=== PATIENT | female | born 1980 | race Caucasian/White ===

== ENCOUNTER → 2020-08-08 | Outpatient (CLI) | payer OTHER, SELFPAY ==
[2020-08-08 15:05] VITALS: BMI 21.8
== END | disposition home or self-care (01) ==
LOC: LABSPEC 16:54
PROVIDERS: Visit Provider Obstetrics & Gynecology
DX: N89.8 Other specified noninflammatory disorders of vagina (principal)
CPT/HCPCS: 87070; 87205

== ENCOUNTER → 2021-06-21 15:53 | Outpatient (CLI) | payer OTHER, SELFPAY ==
[2021-06-27 08:29] LABS: HPV APTIMA, High Risk Negative (Negative)
== END ==
PROVIDERS: Referring Provider Physician Assistant; Visit Provider Physician Assistant
DX: Z12.4 Encounter for screening for malignant neoplasm of cervix (principal)
CPT/HCPCS: 87624; 88175; G0145

== ENCOUNTER → 2021-08-08 16:15 | Outpatient (CLI) | payer OTHER, SELFPAY ==
--- NOTE | 2021-08-08 16:17 | BI_ITS ---
MAMMOGRAPHY - BILATERAL SCREENING REASON FOR EXAM: Female, 40 years old. Routine annual screening examination. PERTINENT HISTORY: Non-contributory. TECHNIQUE: Digital bilateral breast kelly (3D mammographic acquisition) in the CC and MLO projections. 2-D mediolateral oblique (MLO) and craniocaudad (CC) views of both breasts were obtained. CAD: Full Field Digital Mammography with Computer Added Detection was performed. COMPARISON: None. Baseline examination. FINDINGS: Breast Composition: The breasts are extremely dense, which lowers the sensitivity of mammography. There are no dominant masses or suspicious calcifications. No other significant abnormalities are identified. BI/SCRN MAMM (CAD)W/KELLY BILAT IMPRESSION: Negative screening mammogram. Yearly followup mammogram recommended. (A) ASSESSMENT CATEGORY: BIRADS Category 1: Negative. A letter regarding these results will be sent to the patient by the facility within 30 days. Approximately 10% of breast cancers are not detected by mammography. A normal mammogram should not delay biopsy of a clinically suspicious abnormality. [id number] Electronically Signed: Tae Roman MD at 9:38 EST , Service support ,
== END ==
PROVIDERS: PCP Family Medicine; Referring Provider Physician Assistant; Visit Provider Physician Assistant
DX: Z12.31 Encounter for screening mammogram for malignant neoplasm of breast (principal)
CPT/HCPCS: 77063; 77067

== ENCOUNTER → 2022-06-28 | Outpatient (CLI) | payer OTHER, SELFPAY | END | disposition home or self-care (01) | PROVIDERS: PCP Family Medicine; Visit Provider Obstetrics & Gynecology | DX: N89.8 Other specified noninflammatory disorders of vagina (principal) | CPT/HCPCS: 87070; 87077; 87186; 87205 ==

== ENCOUNTER → 2022-09-10 | Outpatient (CLI) | payer OTHER, SELFPAY ==
--- NOTE | 2022-09-10 15:04 | BI_ITS ---
MAMMOGRAPHY - BILATERAL SCREENING REASON FOR EXAM: Female, 41 years old. Routine annual screening examination. PERTINENT HISTORY: Non-contributory. TECHNIQUE: Digital bilateral breast kelly (3D mammographic acquisition) in the CC and MLO projections. 2-D mediolateral oblique (MLO) and craniocaudad (CC) views of both breasts were obtained. CAD: Full Field Digital Mammography with Computer Added Detection was performed. COMPARISON: Comparison is made with prior study dated 08/08/2021. FINDINGS: Breast Composition: The breasts are extremely dense, which lowers the sensitivity of mammography. There are no dominant masses or suspicious calcifications. No other significant abnormalities are identified. There has been no significant change since the prior study. BI/SCRN MAMM (CAD)W/KELLY BILAT IMPRESSION: Stable bilateral screening mammogram. Yearly follow-up mammogram recommended. (A) ASSESSMENT CATEGORY: BIRADS Category 1: Negative. A letter regarding these results will be sent to the patient by the facility within 30 days. Approximately 10% of breast cancers are not detected by mammography. A normal mammogram should not delay biopsy of a clinically suspicious abnormality. [id number] Electronically Signed: Tae Roman MD at 15:45 EST ,
== END | disposition home or self-care (01) ==
LOC: OPBI 15:03
PROVIDERS: PCP Family Medicine; Visit Provider Obstetrics & Gynecology
DX: Z12.31 Encounter for screening mammogram for malignant neoplasm of breast (principal)
CPT/HCPCS: 77063; 77067

== ENCOUNTER → 2023-09-24 | Outpatient (CLI) | payer OTHER, SELFPAY ==
--- NOTE | 2023-09-24 13:58 | BI_ITS ---
MAMMOGRAPHY - BILATERAL SCREENING REASON FOR EXAM: Female, 42 years old. Routine annual screening examination. PERTINENT HISTORY: Non-contributory. TECHNIQUE: Digital bilateral breast kelly (3D mammographic acquisition) in the CC and MLO projections. 2-D mediolateral oblique (MLO) and craniocaudad (CC) views of both breasts were obtained. CAD: Full Field Digital Mammography with Computer Added Detection was performed. COMPARISON: Comparison is made with prior study dated March 10, 2023 and August 08, 2021. FINDINGS: Breast Composition: The breasts are extremely dense, which lowers the sensitivity of mammography. There are no dominant masses or suspicious calcifications. No other significant abnormalities are identified. There has been no significant change since the prior study. BI/SCRN MAMM (CAD)W/KELLY BILAT IMPRESSION: Stable bilateral screening mammogram. Yearly follow-up mammogram recommended. (A) ASSESSMENT CATEGORY: BIRADS Category 1: Negative. A letter regarding these results will be sent to the patient by the facility within 30 days. Approximately 10% of breast cancers are not detected by mammography. A normal mammogram should not delay biopsy of a clinically suspicious abnormality. [id number] Electronically Signed: Tae Roman MD at 13:12 EST ,
--- OUTSIDE RECORDS SUMMARY | 2023-09-24 14:24 | XMS RPT_ITS | CCD ---
Author Name Unknown Address [id number] [place] [address] Organization [facility] Care Team Providers Care Cleaning Matron Name Role Phone Katelin Means MD Unavailable [phone] Vera SENIOR INFORMATION SECURITY CONSULTANT, Darlene Borges Unavailable DARIN Scott RN, Renae De La Torre Unavailable UnavailShakira Prather Unavailable Unavailable BRENDA ESTES M.D. Unavailable UnavailBRENDA Mckeon M.D. Unavailable UnavailKatelin Ulloa MD Unavailable [phone] HR, STAFF PHYSICIAN Attending Unavailable HR, STAFF PHYSICIAN Primary Care Unavailable HR, STAFF PHYSICIAN Admitting Unavailable NGOZI RODRIGUEZ Admitting Unavailab NGOZI Mullins Attending Unavailab NGOZI Mullins Primary Care Unavailab Clau Ramirez Primary Care Provider Pcp ROAD MANAGER, No Primary Care Provider Unavailbarrie e Pcp ROAD MANAGER, No Primary Care Provider Unavailbarrie e Medications Completed/Discontinued Medications Medication Drug Class(es) Dates Sig (Normalized) Sig (Original) fluconazole 150 mg oral tablet (4 sources) Azole Antifungal Start: 07-22-2017 FLUCONAZOLE 150 MG TABS 1 po today and repeat 3 days FLUCONAZOLE [id number] Darlene Gamez SENIOR INFORMATION SECURITY CONSULTANT Problems Active Problems Problem Classification Problem Date Documented Date Episodic/Chronic Genitourinary symptoms and ill-defined conditions (2 sources) Female stress incontinence; Translations: [Stress incontinence (female) (male)] Onset: 01-11-2016 01-11-2016 Chronic Unclassified (5 sources) Screening for malignant neoplasm of cervix ; Translations: [Encounter for screening for malignant neoplasm of cervix] Onset: 07-18-2017 07-18-2017 Unclassified (5 sources) Gynecologic examination ; Translations: [Encounter for gynecological examination (general) (routine) without abnormal findings] Onset: 07-18-2017 07-18-2017 Unclassified (1 source) Unknown / UNK(Unknown) Onset: 08-18-2013 Past or Other Problems Problem Classification Problem Date Documented Date Episodic/Chronic Abdominal pain (1 source) Abdominal pain Onset: 08-18-2013 Episodic Inflammatory diseases of female pelvic organs (9 sources) Vaginitis; Translations: [Acute vaginitis] Onset: 04-26-2017 04-26-2017 Episodic Other female genital disorders (5 sources) Vaginal odor; Translations: [Other specified noninflammatory disorders of vagina] Onset: 07-18-2017 07-18-2017 Episodic Results Test Name Value Interpretation Reference Range Facil ity Vital Signs Date Time Vital Sign Value Performing Clinician Trishi litmissy 07-18-2017 15:36-0500 BMI (Body Mass Index) 21.3 kg/m2 Darlene Gamez [facility] [place] 07-18-2017 15:36-0500 BP Diastolic 77 mm[Hg] Darlene Gamez [facility] [place] 07-18-2017 15:36-0500 BP Systolic 117 mm[Hg] Darlene Gamez [facility] [place] 07-18-2017 15:36-0500 Height 167.64 cm Darlene Gamez [facility] [place] 07-18-2017 15:36-0500 Weight 59.87 kg Darlene Gamez [facility] [place] 07-18-2017 15:36-0500 Weight 59.88 kg Darlene Vera [facility] [place] 04-26-2017 13:33-0400 BMI (Body Mass Index) 21.53 kg/m2 Katelin Means MD [facility] [place] 04-26-2017 13:33-0400 Body Temperature 98 [degF] Katelin Means MD [facility] [place] 04-26-2017 13:33-0400 Body Temperature 98.01 [degF] Katelin Means MD [facility] [place] 04-26-2017 13:33-0400 BP Diastolic 64 mm[Hg] Katelin Means MD [facility] 04-26-2017 13:33-0400 BP Systolic 98 mm[Hg] Katelin Means MD [facility] 04-26-2017 13:33-0400 Height 167.64 cm Katelin Means MD [facility] 04-26-2017 13:33-0400 Pulse (Heart Rate) 67 /min Katelin Means MD [facility] 04-26-2017 13:33-0400 Respiratory Rate 16 /min Katelin Means MD [facility] 04-26-2017 13:33-0400 Weight 60.51 kg Katelin Means MD [facility] Encounters Encounter Date Encounter Type Care Provider Facility Start: 02-12-2022 ambulatory STAFF PHYSICIAN [facility] Start: 12-07-2021 End: 12-07-2021 ambulatory NGOZI RODRIGUEZ [facility] Start: 08-20-2013 End: 08-20-2013 Evaluation and management of inpatient BRENDA ESTES Facility:[facility] Start: 08-18-2013 Emergency department patient visit BRENDA ESTES [facility] Start: 07-22-2007 Documentation procedure Fernando Pulido MD Work Phone: [facility] Start: 07-22-2007 Historic EMR She Pulido MD Work Phone: [facility] Start: 07-17-2006 Documentation procedure Fernando Pulido MD Work Phone: [facility] Start: 07-17-2006 Historic EMR She Pulido MD Work Phone: [facility] Procedures Date Procedure Procedure Detail Performing Clinician Start: 07-18-2017 End: 07-29-2017 Bacteria identified in Genital specimen by Aerobe culture Darlene Gamez NP Work Phone: Start: 07-21-2007 CYTOLOGY UNDERWRITING ACCOUNT REPRESENTATIVETRISHA MD Work Phone: Start: 07-16-2006 CYTOLOGY UNDERWRITING ACCOUNT REPRESENTATIVETRISHA MD Work Phone: Plan of Treatment Date Care Activity Detail Author Start: 05-03-2023 Influenza vaccination [facility] Start: 09-02-2022 Depression Assessment Depression Assessment [facility] Start: 2020 Mammography Mammogram Screening [facility] Start: 09-21-2018 Pap Testing Pap Testing [facility] Start: 07-18-2017 End: 07-18-2017 Appointment Appointment [facility] Start: 07-18-2017 End: 07-29-2017 Bacteria genital culture *CUV - Culture, VAG/CX [facility] Start: 05-30-2017 End: 05-30-2017 Appointment Appointment [facility] Start: 04-26-2017 End: 04-26-2017 Bacteria genital culture *CUV - Culture, VAG/CX [facility] Start: 04-26-2017 End: 04-26-2017 Appointment Appointment [facility] Start: 04-26-2017 End: 04-26-2017 Bacteria genital culture *CUV - Culture, VAG/CX [facility] Start: 09-12-2016 HPV Testing HPV Testing [facility] Start: 11-26-1999 Urine microalbumin profile DTaP,Tdap,Td Vaccine (1 - Tdap) [facility] Start: 1998 HIV Screening HIV Screening [facility] Start: 05-28-1981 Covid-19 Vaccine (#1) Covid-19 Vaccine (#1) [facility] Start: 1980 Hepatitis B Vaccine (1 of 3 - 3-dose series) Hepatitis B Vaccine (1 of 3 - 3-dose series) [facility] Payers Date Payer Category Payer Unknown [id number] Unknown [id number] Unknown [id number] Social History Date Type Detail Facility Tobacco smoking stat [facility] Tobacco smoking consumption unknown [facility] Start: 1980 Sex Assigned At Not on file [facility] Gender identity Not on file [facility] in History of Past illness Narrative 09-12-2011 Note Date & Type Note Facility documented as of this encounter (statuses as of 05/23/2023) [facility] Summary Purpose Family History No Family History Records FoundNo Family History Records FoundNo Family History Records Found Advance Directives No Advanced Directives Records FoundNo Advanced Directives Records FoundNo Advanced Directives Records Found Additional Source Comments INFORMATION SOURCE (unrecogn ized section and content) DATE CREATED AUTHOR AUTHOR'S ORGANIZ ATION 12/12/2021 [facility] DATE CREATED AUTHOR AUTHOR'S ORGANIZ ATION 02/13/2022 [facility] Source Comments (unrecognize d section and content) In the event this informatio n is protected by the Federal Confidentiality of Alcohol and Drug Abuse Patient Records regulations: The Federal rules restrict any use of the information to criminally investigate or prosecute any alcohol or drug abuse patient.[facility] the event this information is protected by the Federal Confidentiality of Alcohol and Drug Abuse Patient Records regulations: The Federal rules restrict any use of the information to criminally investigate or prosecute any alcohol or drug abuse patient.[facility] Care Teams (unrecognized sec tion and content) FOR RECORDS PERTAINING TO PATIENTS WHO ARE OR HAVE BEEN ENROLLED IN A CHEMICAL DEPENDENCY/SUBSTANCEABUSE PROGRAM, SOME INFORMATION MAY BE OMITTED. This clinical summary was aggregated from multiple sources. Caution should be exercised in using it in the provision of clinical care. This summary normalizes information from multiple sources, and as a consequence, information in this document may materially change the coding, format and clinical context of patient data. In addition, data may be omitted in some cases. CLINICAL DECISIONS SHOULD BE BASED ON THE PRIMARY CLINICAL RECORDS. [facility]. provides no warranty or guarantee of the accuracy or completeness of information in this document.
== END | disposition home or self-care (01) ==
PROVIDERS: PCP Family Medicine; Referring Provider Registered Nurse; Visit Provider Registered Nurse
DX: Z12.31 Encounter for screening mammogram for malignant neoplasm of breast (principal)
CPT/HCPCS: 77063; 77067

== ENCOUNTER → 2023-10-22 | Outpatient (CLI) | payer OTHER, SELFPAY ==
--- NOTE | 2023-10-22 13:36 | US_ITS ---
STUDY: ULTRASOUND OF THE FEMALE PELVIS - COMPLETE REASON FOR EXAM: Female, 42 years old. Uterine fibroid LMP: October 02, 2023. TECHNIQUE: Transabdominal and Transvaginal TECHNICAL QUALITY: Adequate. COMPARISON: None. FINDINGS: The uterus is retroverted and is in a midline position. The uterus is enlarged and measures 10.7 cm x 6.2 cm x 6.3 cm. Normal uterine cervix. The endometrium is thickened measures 17.8 mm in thickness, and is hyperechoic. There is no demonstrated endometrial mass. There is a 3.8 cm x 3.9 cm x 3.4 cm fundal fibroid. I.U.D. - The patient does not have an I.U.D. The right ovary is visualized. The right ovary measures 2.5 cm x 1.8 cm x 1.4 cm. There is no right ovarian cyst or ovarian mass. There is no visualized right adnexal mass or complex lesion. There is normal arterial and normal venous vascularity. The left ovary is visualized. The left ovary measures 3.5 cm x 2.8 cm x 2.3 cm. There is no left ovarian cyst or ovarian mass. There is no visualized left adnexal mass or complex lesion. There is normal arterial and normal venous vascularity. Small amount of free fluid in the right adnexa. The pre void volume of the bladder was 360 ml. US/Pelvic w/ Transvaginal IMPRESSION: Enlarged fibroid uterus. Thickening of the endometrium. Small amount of free fluid in the right adnexa. Electronically Signed: Tae Roman MD at 14:53 EST ,
--- OUTSIDE RECORDS SUMMARY | 2023-10-22 18:34 | XMS RPT_ITS | CCD ---
Author Name Unknown Address [address] [place] [address] Organization [facility] Care Team Providers Care Stumper Feller Name Role Phone Katelin Means MD Unavailable Vera GRAY, Darlene Borges Unavailable DARIN Scott RN, Renae De La Torre Unavailable UnavailShakira Prather Unavailable Unavailable BRENDA ESTES M.D. Unavailable UnavailBRENDA Mckeon M.D. Unavailable UnavailKatelin Ulloa MD Unavailable [phone] HR, STAFF PHYSICIAN Attending Unavailable HR, STAFF PHYSICIAN Primary Care Unavailable HR, STAFF PHYSICIAN Admitting Unavailable NGOZI RODRIGUEZ Admitting Unavailab NGOZI Mullins Attending Unavailab NGOZI Mullins Primary Care Unavailab Clau Ramirez Primary Care Provider Pcp QUARTZ CUTTER, No Primary Care Provider Unavailbarrie dowling Pcp QUARTZ CUTTER, No Primary Care Provider UnavailDev RUIZ-Nelson, ANABELA Coronado Unavailable ROXANNA RAMIREZ Unavailable [facility] Unavailable Unavailable Judi LEVY MD Unavailable [phone] SHRAVAN MAZARIEGOS MD Unavailable [phone] ENDY SPEAR MD Unavailable Katelin Morales Unavailable Unavailable Cononr LINDER MD Unavailable BLANCA BLACK Unavailable Unavailable Shakira Armstrong Unavailable Unavailable Unavailable Unavailable Allergies Allergy Classification Reported Allergen(s) Allergy Type Date of Onset Reaction(s) Facility (1 source) Erythromycin Drug Allergy 07-19-2023 [facility]; [facility] Medications Current Medications Medication Drug Class(es) Dates Sig (Normalized) Sig (Original) doxycycline hyclate 100 mg oral tablet (1 source) Tetracycline-class Drug take 1 tablet by mouth twice daily Doxycycline Hyclate 100 MG Oral Tablet ; 1 two times daily (100 MG) Comments: Security Patrol Officer Completed/Discontinued Medications Medication Drug Class(es) Dates Sig (Normalized) Sig (Original) amoxicillin 500 mg oral tablet (1 source) Penicillin-class Antibacterial Start: 09-27-2011 End: 10-07-2011 take 1 tablet by mouth three times daily AMOXICILLIN, 500MG (Oral Tablet) ; 1 (one) Tablet three times daily for 10 days Quantity: 30 {Tablet} Refills: 0 Ordered: 01-Oct-2012 MD Judi LEVY Start: 27-Sep-2011 End: 07-Oct-2011 Status: Inactive Comments: meds to be dispensed in office Problems Active Problems Problem Classification Problem Date Documented Date Episodic/Chronic Abdominal pain (2 sources) Abdominal pain; Translations: [Unspecified abdominal pain] Onset: 08-18-2013 08-19-2013 Episodic Acute bronchitis (2 sources) Acute bronchitis 01-15-2014 Episodic Administrative/social admission (2 sources) Patient encounter status; Translations: [Counseling, unspecified] 06-15-2019 Episodic Allergic reactions (2 sources) Contact dermatitis due to plants; Translations: [Unspecified contact dermatitis due to plants, except food] 04-14-2015 Episodic Genitourinary symptoms and ill-defined conditions (2 sources) Female stress incontinence; Translations: [Stress incontinence (female) (male)] Onset: 01-11-2016 01-11-2016 Chronic Immunizations and screening for infectious disease (2 sources) Requires diphtheria, tetanus and pertussis vaccination; Translations: [Encounter for immunization] 07-21-2021 Episodic Other skin disorders (1 source) Eruption; Translations: [Rash and other nonspecific skin eruption] 01-15-2014 Episodic Other upper respiratory infections (3 sources) Acute bacterial sinusitis; Translations: [Acute sinusitis, unspecified] 01-11-2014 Episodic Unclassified (5 sources) Screening for malignant neoplasm of cervix ; Translations: [Encounter for screening for malignant neoplasm of cervix] Onset: 07-18-2017 07-18-2017 Unclassified (5 sources) Gynecologic examination ; Translations: [Encounter for gynecological examination (general) (routine) without abnormal findings] Onset: 07-18-2017 07-18-2017 Unclassified (1 source) Unknown / UNK(Unknown) Onset: 08-18-2013 Viral infection (2 sources) Herpes zoster; Translations: [Zoster without complications] 01-16-2014 Episodic Past or Other Problems Problem Classification Problem Date Documented Date Episodic/Chronic Inflammatory diseases of female pelvic organs (9 sources) Vaginitis; Translations: [Acute vaginitis] Onset: 04-26-2017 04-26-2017 Episodic Other female genital disorders (5 sources) Vaginal odor; Translations: [Other specified noninflammatory disorders of vagina] Onset: 07-18-2017 07-18-2017 Episodic Unclassified (1 source) Physical examination - Note for Physical examination : Pt has a wellness form to fill out for work ([employer]). Pt is feeling good. No complaints. 07-19-2023 Unclassified (1 source) Immunization - Immunizations discussed with patient/ parent: yes. Note for For immmunization : Up to date 06-11-2022 Unclassified (1 source) [ADDITIONAL REASON] Physical examination - The patient is here for a annual physical. Note for Physical examination : See form. Sees [place] in [place] for Paps/Breast exam 06-11-2022 Unclassified (1 source) Physical examination - The patient is here for a work (csb) physical. 07-21-2021 Unclassified (1 source) Physical examination - The patient is here for a work physical. Note for Physical examination : Form to fill out. Pt sees [employer] for paps. 06-17-2020 Unclassified (1 source) Physical examination - The patient is here for a work physical. 06-15-2019 Unclassified (1 source) Physical examination - The patient is here for a work physical. Note for Physical examination : Wellness for work. 06-09-2018 Unclassified (1 source) Rash - The onset of the rash has been acute and has been occurring for 5 days. The rash is characterized as red and raised above the skin. The patient was possibly exposed while gardening. The rash was first seen on the upper extremity and the lower extremity. There has been associated itching. Note for Rash : . 04-14-2015 Unclassified (1 source) Rash - The course has been increasing. The rash is characterized as red (Large red spots on left side of neck and some smaller ones behind left ear. Also complains of a tender feeling along the left side of her head.). 01-16-2014 Unclassified (1 source) recheck - other illness (bronchitis. Last visit 01-11-14. Finishing z juni. c/o red spot on neck and swollen glands.). 01-15-2014 Unclassified (1 source) Sinus pain - The sinus pain has been occurring for 1 week. There has been associated cough (green), fever and runny nose (green and eyes red). 01-11-2014 Unclassified (1 source) Abdominal pain - The onset of the abdominal pain has been sudden and has been occurring for 1 day. The abdominal pain is described as sharp pain. There has been no associated diarrhea, nausea (Nausea did start but only after taking medicine.) or vomiting. 08-19-2013 Unclassified (1 source) [ADDITIONAL REASON] Transition into care - The patient most recently received care from an emergency room (Pt was seen in [place] ER for abdominal pain. It woke her up at 3 a.m. and was severe. Pt did have a temp of 100.8. A CT scan and an ultrasound were done, along with bloodwork. They diagnosed pt with having an abnormal distal small bowel. ). Note for Transition into care : Pt received Cipro, Flagyl, and Levsin. Pt's abdominal pain is gone, but now she feels blah. 08-19-2013 Unclassified (1 source) sore throat - The sore throat has been occurring for 1 week. The symptoms have been associated with chills, cough, difficulty in breathing and post-nasal drip. Note for sore throat : Here for exam. 09-27-2011 Results Test Name Value Interpretation Reference Range Facil ity Vital Signs Date Time Vital Sign Value Performing Clinician Swathi golria 07-19-2023 13:20-0500 Body height 168.91 cm Blanca Rios RN [facility], [facility].; [facility]. 07-19-2023 13:20-0500 Body mass index (BMI) [Ratio] 21.46 kg/m2 [facility] 07-19-2023 13:20050 Body surface area Derived from formula 1.7 m2 Blanca Rios RN [facility].; [facility]. 07-19-2023 13:20050 Body weight 61.24 kg Blanca Rios RN [facility], [employer]. 07-19-2023 13:20050 Diastolic blood pressure 92 mm[Hg] Blanca Rios [facility].; [facility]. Encounters Encounter Date Encounter Type Care Provider Facility Start: 07-19-2023 End: 07-19-2023 Patient encounter procedure SHRAVAN MAZARIEGOS MD Work Phone: [facility]; [facility] Start: 07-19-2023 End: 07-19-2023 Periodic preventive med est patient 40-64yrs ANABELA SWAIN DISTRIBUTION TECHNICIAN-C [facility] Start: 06-11-2022 End: 06-11-2022 Patient encounter procedure ANABELA SWAIN DISTRIBUTION TECHNICIAN-C Work Phone: [facility] Start: 06-11-2022 End: 06-11-2022 Periodic preventive med est patient 40-64yrs ANABELA SWAIN DISTRIBUTION TECHNICIAN-C [facility] Start: 02-12-2022 ambulatory STAFF PHYSICIAN [facility] Start: 12-07-2021 End: 12-07-2021 ambulatory NGOZI RODRIGUEZ [facility] Start: 08-09-2021 End: 08-09-2021 Historical Summary ANABELA SWAIN DISTRIBUTION TECHNICIAN-C Work Phone: [employer] Start: 07-21-2021 End: 07-21-2021 Patient encounter procedure ANABELA SWAIN DISTRIBUTION TECHNICIAN-C Work Phone: [employer] Start: 07-21-2021 End: 07-21-2021 Periodic preventive med est patient 40-64yrs ANABELA SWAIN DISTRIBUTION TECHNICIAN-C Work Phone: [employer] [facility] [employer] Start: 06-17-2020 End: 06-17-2020 Patient encounter status SHRAVAN MAZARIEGOS MD Work Phone: [employer]; [employer] Start: 06-17-2020 End: 06-17-2020 Periodic preventive med est patient 18-39 yrs ANABELA SWAIN DISTRIBUTION TECHNICIAN-C Work Phone: [employer] [place] [employer] Start: 06-15-2019 End: 06-15-2019 Patient encounter status ANABELA SWAIN DISTRIBUTION TECHNICIAN-C Work Phone: [employer] Start: 06-15-2019 End: 06-15-2019 Periodic preventive med est patient 18-39 yrs ANABELA SWAIN DISTRIBUTION TECHNICIAN-C Work Phone: [employer] [place] [employer] Start: 06-09-2018 End: 06-09-2018 Patient encounter status ANABELA SWAIN DISTRIBUTION TECHNICIAN-C Work Phone: [employer]; [employer] Start: 06-09-2018 End: 06-09-2018 Periodic preventive med est patient 18-39 yrs ANABELA SWAIN DISTRIBUTION TECHNICIAN-C Work Phone: [facility] [employer] Start: 04-14-2015 End: 04-14-2015 Office outpatient visit 15 minutes ANABELA RUIZ-Nelson Work Phone: [employer] [facility] Start: 01-16-2014 End: 01-16-2014 Patient encounter procedure ANABELA SWAIN DISTRIBUTION TECHNICIAN-C Work Phone: [employer] [facility] [place] Start: 01-15-2014 End: 01-15-2014 Patient encounter procedure ANABELA SWAIN DISTRIBUTION TECHNICIAN-C Work Phone: [employer] [facility] [place] Start: 01-11-2014 End: 01-11-2014 Patient encounter procedure ANABELA SWAIN DISTRIBUTION TECHNICIAN-C Work Phone: [employer] Start: 10-30-2013 End: 10-30-2013 Results Review ANABELA SWAIN DISTRIBUTION TECHNICIAN-C Work Phone: [facility] Start: 08-20-2013 End: 08-20-2013 Evaluation and management of inpatient BRENDA ESTES Facility:[facility] Start: 08-19-2013 End: 08-19-2013 Patient encounter procedure ANABELA SWAIN DISTRIBUTION TECHNICIAN-C Work Phone: [employer] Start: 08-18-2013 Emergency department patient visit BRENDA ESTES Facility:[facility] Start: 09-27-2011 End: 09-27-2011 Patient encounter procedure ANABELA SWAIN DISTRIBUTION TECHNICIAN-C Work Phone: [employer] Start: 10-19-2010 End: 10-19-2010 Historical Summary ANABELA SWAIN DISTRIBUTION TECHNICIAN-C Work Phone: [employer] [place] [employer] Start: 07-22-2007 Documentation procedure Fernando Pulido MD Work Phone: [facility] Start: 07-22-2007 Historic EMR She Pulido MD Work Phone: [facility] Start: 07-17-2006 Documentation procedure Fernando Pulido MD Work Phone: [facility] Start: 07-17-2006 Historic EMR She Pulido MD Work Phone: [facility] Procedures Date Procedure Procedure Detail Performing Clinician Start: 07-19-2023 End: 07-19-2023 Dischrg meds reconciled w/current med list SHRAVAN MAZARIEGOS MD Work Phone: Start: 09-10-2022 End: 09-10-2022 Screening mammography SHRAVAN MAZARIEGOS MD Work Phone: Plan of Treatment Date Care Activity Detail Author Start: 05-03-2023 [facility]enza [facility] Start: 09-02-2022 Depression Assessment Depression Assessment [facility] Start: 2020 Mammography Mammogram Screening [facility] Start: 09-21-2018 Pap Testing Pap Testing [facility] Start: 07-18-2017 End: 07-18-2017 Appointment Appointment [facility] Start: 07-18-2017 End: 07-29-2017 Bacteria genital culture *CUV - Culture, VAG/CX [facility] Start: 05-30-2017 End: 05-30-2017 Appointment Appointment [facility] Start: 04-26-2017 End: 04-26-2017 Bacteria genital culture *CUV - Culture, VAG/CX [facility] Start: 04-26-2017 End: 04-26-2017 Appointment Appointment [facility] Start: 04-26-2017 End: 04-26-2017 Bacteria genital culture *CUV - Culture, VAG/CX [facility] Start: 09-12-2016 HPV Testing HPV Testing [facility] Start: 04-14-2015 Patient Education POISON JOSH Indication: Dermatitis due to plants, including poison josh, sumac, and oak Start: 14-Apr-2015 Instruction Type: Patient Education [facility] Start: 01-16-2014 Patient Education SHINGLES Indication: Shingles Start: 16-Jan-2014 Instruction Type: [facility] Education [facility] [employer] [facility] [place]. Start: 01-11-2014 Patient Education BRONCHITIS, ACUTE Indication: BRONCHITIS, ACUTE Start: 11-Jan-2014 Instruction Type: Patient Education [facility].; [employer] [facility]. Start: 09-27-2011 Patient Education Sinusitis *: sinusitis Indication: Acute bacterial sinusitis Start: 27-Sep-2011 Instruction Type: Patient Education [facility] [employer] [facility]. Start: 11-26-1999 Urine microalbumin profile DTaP,Tdap,Td Vaccine (1 - Tdap) [facility] Start: 1998 HIV Screening HIV Screening [facility] Start: 05-28-1981 Covid-19 Vaccine (#1) Covid-19 Vaccine (#1) [facility] Start: 1980 Hepatitis B Vaccine (1 of 3 - 3-dose series) Hepatitis B Vaccine (1 of 3 - 3-dose series) [facility] Immunizations Immunization Date Immunization Notes Care Provider Chet messer 06-06-2022 influenza virus vaccine, unspecified formulation ANABELA SWAIN DISTRIBUTION TECHNICIAN-C Work Phone: [facility] Payers Date Payer Category Payer Unknown [id number] Unknown [id number] Unknown [id number] Unknown [employer] Social History Date Type Detail Facility [facility] Start: 1980 Sex Assigned At Not on file [facility] Gender identity Not on file [facility] inic Alcohol Use: Alcohol Use: ; Y es for Alcohol Use. 1 to 7 drinks per week. 1 drink per occasion. [facility] Most Recent Primary Occupation Most Recent Primary Occupation [facility].; [employer] [facility] Tobacco use: Tobacco use: ; N ever smoker. [facility], [facility]. Female [facility], [facility].; [facility], [facility]. Work Phone: Never smoked tobacco [employer]iano [employer], [facility].; [facility], [facility]. Work Phone: History of Past illness Narrative 09-12-2011 Note Date & Type Note Facility documented as of this encounter (statuses as of 05/23/2023) [facility] Summary Purpose Family History Children Status:Active Comments:x2 Father Status:Active Comments: d age 63 - metastatic neuroendocrine cancer Mother Status:Active Comments:[employer] Advance Directives No Advanced Directives Records FoundNo Advanced Directives Records FoundNo Advanced Directives Records Found Additional Source Comments INFORMATION SOURCE (unrecogn ized section and content) DATE CREATED AUTHOR AUTHOR'S ORGANIZ ATION 12/12/2021 [facility] DATE CREATED AUTHOR AUTHOR'S ORGANIZ ATION 02/13/2022 [facility] Source Comments (unrecognize d section and content) In the event this informatio n is protected by the Federal Confidentiality of Alcohol and Drug Abuse Patient Records regulations: The Federal rules restrict any use of the information to criminally investigate or prosecute any alcohol or drug abuse patient.[facility] the event this information is protected by the Federal Confidentiality of Alcohol and Drug Abuse Patient Records regulations: The Federal rules restrict any use of the information to criminally investigate or prosecute any alcohol or drug abuse patient.[facility] Care Teams (unrecognized sec tion and content) [...] BE BASED ON THE PRIMARY CLINICAL RECORDS. [facility]. provides no warranty or guarantee of the accuracy or completeness of information in this document.
== END | disposition home or self-care (01) ==
PROVIDERS: PCP Family Medicine; Referring Provider Nurse Practitioner Women's Health; Visit Provider Nurse Practitioner Women's Health
DX: D25.9 Leiomyoma of uterus, unspecified (principal)
CPT/HCPCS: 76830; 76856

== ENCOUNTER → 2024-09-29 | Outpatient (CLI) | payer OTHER, SELFPAY ==
--- NOTE | 2024-09-29 16:17 | BI_ITS ---
PROCEDURE: SCRN MAMM (CAD)W/KELLY BILAT REASON FOR EXAM: F, Age 43 y/o, no family history. TECHNIQUE: Bilateral screening digital breast tomosynthesis with 2D and 3D images. Computer aided detection. COMPARISON: Prior exam(s) dating back to September 24, 2023.. FINDINGS: The breasts are extremely dense which lowers the sensitivity of mammography. No suspicious masses, areas of developing architectural distortion, or suspicious calcifications. No change since prior study. BI/SCRN MAMM (CAD)W/KELLY BILAT IMPRESSION: BI-RADS 1: NEGATIVE. RECOMMEND ANNUAL MAMMOGRAPHIC SCREENING. Follow-up code: Routine Follow-up The patient will be notified of the results by letter. Reading Location: [place] [id number]
== END | disposition home or self-care (01) ==
LOC: OPBI 16:16
PROVIDERS: PCP Family Medicine; Referring Provider Nurse Practitioner Women's Health; Visit Provider Nurse Practitioner Women's Health
DX: Z12.31 Encounter for screening mammogram for malignant neoplasm of breast (principal)
CPT/HCPCS: 77063; 77067